=== PATIENT | female | born 1975 | race Two or more races ===

== ENCOUNTER → 2024-05-03 | Outpatient (BNVA) | payer BC, SELFPAY | END | disposition home or self-care (01) | PROVIDERS: PCP Family Medicine; Referring Provider Family Medicine; Visit Provider Urology | DX: R30.0 Dysuria (principal); Z87.440 Personal history of urinary (tract) infections | CPT/HCPCS: 81003; 99202; 99212; G0463 ==

== ENCOUNTER 2024-08-02 11:00 | Day surgery (SDC) | payer BC, SELFPAY ==
[2024-08-02] VITALS (12 sets, daily range): BP systolic 101–127; BP diastolic 57–74; PULSE 60–74; RESP 13–22; TEMP 36.3–37.1; O2SAT 98–100; BMI 24.3
[2024-08-02] MEDS: RINGERS LACTATED 1000 ML 1,000 ML 20 ML IV (12:49)
[2024-08-02] MEDS: MIDAZOLAM INJ 1 MG/ML VIAL 2 ML (ASD USE ONLY) 2 MG IV (13:02)
[2024-08-02] MEDS: fentaNYL CIT INJ 50 mCg/ML AMP 2ML (ASD USE ONLY) IV (13:02)
== END 2024-08-02 14:05 | disposition home or self-care (01) ==
PROVIDERS: PCP Family Medicine; Referring Provider Internal Medicine Gastroenterology; Visit Provider Internal Medicine Gastroenterology
PROC: 0DBE8ZX Excision of Large Intestine, Via Natural or Artificial Opening Endoscopic, Diagnostic (ICD-10-PCS; CPT 45380; principal; 2024-08-02 13:30)
DX: Z12.11 Encounter for screening for malignant neoplasm of colon (principal); D12.3 Benign neoplasm of transverse colon; K63.89 Other specified diseases of intestine; K57.30 Diverticulosis of large intestine without perforation or abscess without bleeding; K64.8 Other hemorrhoids
CPT/HCPCS: 45385; 81025; A4649; J2250; J3010; J7120